=== PATIENT | female | born 1965 | race Caucasian/White ===

== ENCOUNTER → 2016-06-14 | Outpatient (CLI) | payer OTHER ==
--- NOTE | 2016-06-14 09:59 | DX ---
Right Knee, Three Views 9:20 a.m. Clinical History: 50-year-old female who underwent a right knee arthroplasty on May 03, 2016, and presents for routine surveillance imaging. ICD-10 Diagnostic Code: Z09. Comparison Study: Right knee, dated May 03, 2016. Findings: In the interim, there has been resorption of the postoperative air and removal of postsurgi tanja skin juan. There is a stable appearance to the tricomponent knee arthroplasty with anatomic al ignment of the distal femoral, proximal tibial, and the posterior patellar components. There is gilberto l positioning of the radiolucent spacer. The patellofemoral alignment is maintained on the sunrise vi ew. There is some mild prepatellar soft tissue swelling. Impression: Stable anatomic alignment of the right knee arthroplasty.
== END ==
LOC: BMCIMAGING 09:19
PROVIDERS: ATTEND Physician Assistant
DX: Z47.1 Aftercare following joint replacement surgery (principal); Z96.651 Presence of right artificial knee joint

== ENCOUNTER → 2016-06-28 | Outpatient (CLI) | payer OTHER ==
[~2016-06-28] MED LIST: LIDOCAINE 1% 30 ML SDV ONE; NA BICARBONATE 50 MEQ/50 ML VIAL ONE; THROMBIN (RECOMBINANT) 5,000 UNIT VIAL TP ONE
--- NOTE | 2016-06-28 18:49 | US ---
Right Doppler Pseudoaneurysm Evaluation Indication: The patient is about a month after right knee total replacement. There is a lump that h as developed laterally. It is pulsatile. Ultrasound evaluation earlier today shows a pseudoaneurysm . Thrombin injection is requested. Technique: Both the supervisor cured meats and myself scanned the patient. Findings: This pseudoaneurysm is at the lateral right knee. It is far from the posterior popliteal fossa. The connection between this pseudoaneurysm and the popliteal artery, with my scanning today, is well established. It is not a direct connection, but through a popliteal artery branch vessel or a sural branch vessel. The actual connection of this pseudoaneurysm to this branch is very small, ab out 5 mm in length, about 0.6 mm in diameter. The branch vessel is about 1.3 mm in diameter, and is about at least 2 cm away from the popliteal artery. Therefore, with the above anatomy, injecting thrombin into this pseudoaneurysm would not thrombose th e pseudoaneurysm. It would continue to fill via the branch vessel. Coil embolization of this branch vessel would be more appropriate definitive care route. The above are discussed with the patient, who expressed understanding. Assessment 1. Pseudoaneurysm at the right lateral knee that is coming off of a branch vessel, which in turn com municates via a long segment to the popliteal artery. 2. This needs to be coil embolized. Thrombin injection alone would not suffice. 3. The patient is now scheduled for catheter-directed angiography and coil embolization via [facility] for this Tuesday. 4. Meanwhile, I have asked the patient to continue to wear her compression stockings, cancel physica l therapy appointments for this week, and wrap it with Jamarcus wrap for added support, if needed. The pa marie states that it has increased in swelling for the last couple days.
== END ==
LOC: FIMAGING 14:00
PROVIDERS: ATTEND Family Medicine
DX: I72.4 Aneurysm of artery of lower extremity (principal); Z96.651 Presence of right artificial knee joint

== ENCOUNTER → 2016-06-28 | Outpatient (CLI) | payer OTHER ==
--- NOTE | 2016-06-28 12:28 | DX ---
Right Knee, 3 Views 11:20 a.m. Indication: Swelling. Technique: AP, lateral, and Merchant views. Comparison: Right knee series dated June 14, 2016, May 03, 2016, and February 25, 2014. Findings: The right total knee arthroplasty remains well seated. No perihardware fracture or lucency. The radiolucent spacer between the tibial and femoral components appears to be centrally positioned and unchanged in configuration. Moderate soft tissue fullness along the lateral aspect of the knee. M oderate effusion persists. Impression: 1. Good positioning of total knee arthroplasty. No perihardware fracture or breakdown. 2. Moderate effusion. Comment: The results were reviewed with Dr. Birdie Godwin and Odette Martinez PA-C shortly after study com pletion.
--- NOTE | 2016-06-28 13:29 | US ---
CORRECTED ORDER Right knee ultrasound at 11:58 a.m. Indication: Pain and swelling along the lateral aspect of the knee. Total knee arthroplasty in April 2016. Technique: The posterior and lateral aspects of the right knee were evaluated with grayscale and color Doppler imaging. Findings: The palpable fullness along the lateral aspect of the right knee corresponds to a pulsating 3.3 x 2.8 x 2.2 cm pseudoaneurysm. The pseudoaneurysm has a long (4 cm) neck, measuring up to 0.2 cm in diameter, which communicates with the popliteal artery along the posterior aspect of the knee. No evidence of arterial venous fistula. Impression: 3.3 cm pseudoaneurysm along the lateral aspect of the right knee has a long thin neck communicating with the popliteal artery. Comment: The results were discussed with Dr. Birdie Godwin and EDE Hung. Additionally, the imaging was reviewed with Dr. Kanchan Biggs. CECIL
== END ==
LOC: BMCIMAGING 11:17
PROVIDERS: ATTEND Family Medicine
DX: M25.461 Effusion, right knee (principal); Z96.651 Presence of right artificial knee joint

== ENCOUNTER 2016-07-02 11:13 | Observation (INO) | payer OTHER ==
[2016-07-02 12:28] LABS: CREATININE 0.6 mg/dL (0.6-1.0); GLOMERULAR FILTRATION RATE > 60
[2016-07-02] MEDS ORDERED: fentaNYL 100 MCG/2 ML INJ ONE ×2 (12:42→14:20)
[2016-07-02] MEDS ORDERED: MIDAZOLAM 2 MG/2 ML VIAL ONE ×2 (12:43→14:21)
[2016-07-02] MEDS ORDERED: CEFAZOLIN 2 GM/DEXTROSE/100 ML BAG IV ONE (12:59)
[2016-07-02] MEDS ORDERED: IOPAMIDOL (ISOVUE-300) 100 ML BTL IV ONE ×2 (13:02→15:44)
[2016-07-02 13:30] LABS: PROTIME(PATIENT) 13.1 SEC (12.0-15.0)
[2016-07-02] MEDS ORDERED: IOPAMIDOL (ISOVUE-370) 150 ML BTL IV ONE (15:45)
[2016-07-02] MEDS ORDERED: NITROGLYCERIN/D5W/250 ML BOTTLE IV ONE (15:45)
[2016-07-02] MEDS ORDERED: OXYCODONE/APAP 5/325 TAB PO PRN (16:09)
[2016-07-02] MEDS ORDERED: ONDANSETRON DISINTEGRATING 4 MG TAB PO PRN (16:09)
[2016-07-02] MEDS ORDERED: ONDANSETRON 4 MG/2 ML VIAL IVP PRN (16:09)
--- NOTE | 2016-07-02 18:26 | IR ---
Right Popliteal Arteriogram Transcatheter Embolization of Right Lateral Inferior Genicular Artery History: Pseudoaneurysm after right total knee arthroplasty. Consent: Risks and benefits of the procedure were discussed in detail, and informed consent was obta ined. The patient accepted risks of internal bleeding, infection, accidental embolization of nontarg et artery, and ALLERGIC reaction. Medications: Intravenous conscious sedation and analgesia were given under my supervision. Vital si gns, pulse oximetry, and electrocardiogram were monitored. The patient received 7 milligrams of Vers ed and 350 micrograms of fentanyl intravenously. She was given 200 mcg of nitroglycerin intra-arteri ally. Prophylactic antibiotic: Cefazolin, 2 gm IV. Start time: 1338. End time: 1520. Fluoroscopy time in minutes: 24.2. Estimated exposure in milligray: 54.6. Technique: The right groin was prepped and draped in sterile fashion. All elements of maximal steri le barrier technique were used, including cap, mask, sterile gown, sterile gloves, large sterile calero th, hand hygiene, and 2% chlorhexidine, for cutaneous antisepsis. For ultrasound imaging guidance, t he transducer and cable were placed in a sterile cover, and sterile coupling gel was used. Ultrasoun d evaluation of potential access sites was performed. With ultrasound guidance, the right common fem oral artery was entered with a 4-Cymro Microintroducer, followed by a 4-Cymro sidearm sheath over a 0.035 TSF wire. The sheath preferentially went down the right profunda femoris artery. Efforts to redirect a 0.035 Glidewire down the right superficial femoral artery with a 4-Cymro Glidecatheter fa iled, and arterial access was lost. Hemostasis was obtained by manual compression. A second access was made, further cephalad, with a 4-Cymro Microintroducer, 0.035 Amplatz wire, 7-Cymro dilator, an d 6-Cymro sidearm sheath. Once again, the course of the sheath was preferentially down the profunda femoral. Leaving the Amplatz wire in place, a 0.035 Glidewire was advanced [id number], within the sheath, and then down the superficial femoral artery while pulling the sheath tip back to the common femoral. The Amplatz wire was removed. Inner dilator was reinserted in the sheath and the sheath w as advanced down the superficial femoral artery. 4-Cymro Kumpe catheter was used for right poplitea l arteriography. The catheter was selectively placed into the right lateral and inferior genicular a rtery for superselective genicular arteriography. The catheter would not maintain position during vazquez bsequent catheter manipulations. Over a 0.035 Glidewire, exchange is made for a 5-Cymro DBS cathete r. This allowed coaxial placement of a Progreat microcatheter. 0.018 [place] Plus and 0.018 double curved Glidewire were used to attempt to seat the microcatheter beyond the pseudoaneurysm. The guid e wire could be advanced slightly beyond, but microcatheter would not follow. Four 0.018 microcoils were deployed to occlude the lateral inferior genicular artery adjacent to the pseudoaneurysm: Two 2 -mm x 2-cm helical coils and two 10-mm long straight coils (Hilal) were deployed. Spot image and sup erselective lateral genicular arteriography (via microcatheter) followed. Microcatheter was removed. The 5-Cymro catheter was pulled back into the popliteal artery for selective popliteal arteriograp hy. Catheter and sheath were removed. Attempted StarClose deployment failed to stop the bleeding af ter removal of catheter and sheath, and hemostasis was obtained by manual compression with a Thrombix patch. The [facility] condition. Findings: Imaging is limited by the metallic prostheses of the knee joint, obscuring large portions of popliteal artery and limiting the [id number]. Right popliteal artery supplies a hypertrophied lateral inferior genicular artery, which supplies a 2.8-cm x 2.0-cm pseudoaneurysm lateral to the kn ee joint. Two rapidly draining veins suggest arteriovenous fistula. Other arteries of this area are small. The microcoils occlude the lateral genicular artery and delayed images of right popliteal ar teriogram demonstrate no filling of the pseudoaneurysm after embolization. Impressions 1. 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 2. Occlusion of pseudoaneurysm and arteriovenous fistula with microcoils. Plan: Follow up limited color Doppler sonography in two weeks to make sure that the occlusion is dur able. I have ordered that examination. - - - - - - - - - - - - - - - - - - - - - - - - - - - - - ([facility] measures: Current medications were listed in the medical record, including all known prescript ions, liwu-vhq-qycpsrm medications, herbal medications, and nutritional supplements. Tobacco use: N one. Prophylactic antibiotic: Cefazolin, 2 gm IV. VTE prophylaxis: Unnecessary.)
--- NOTE | 2016-07-02 18:26 | IR ---
Right Popliteal Arteriogram Transcatheter Embolization of Right Lateral Inferior Genicular Artery History: Pseudoaneurysm after right total knee arthroplasty. Consent: Risks and benefits of the procedure were discussed in detail, and informed consent was obta ined. The patient accepted risks of internal bleeding, infection, accidental embolization of nontarg et artery, and ALLERGIC reaction. Medications: Intravenous conscious sedation and analgesia were given under my supervision. Vital si gns, pulse oximetry, and electrocardiogram were monitored. The patient received 7 milligrams of Vers ed and 350 micrograms of fentanyl intravenously. She was given 200 mcg of nitroglycerin intra-arteri ally. Prophylactic antibiotic: Cefazolin, 2 gm IV. Start time: 1338. End time: 1520. Fluoroscopy time in minutes: 24.2. Estimated exposure in milligray: 54.6. Technique: The right groin was prepped and draped in sterile fashion. All elements of maximal steri le barrier technique were used, including cap, mask, sterile gown, sterile gloves, large sterile calero th, hand hygiene, and 2% chlorhexidine, for cutaneous antisepsis. For ultrasound imaging guidance, t he transducer and cable were placed in a sterile cover, and sterile coupling gel was used. Ultrasoun d evaluation of potential access sites was performed. With ultrasound guidance, the right common fem oral artery was entered with a 4-Slovenian Microintroducer, followed by a 4-Slovenian sidearm sheath over a 0.035 TSF wire. The sheath preferentially went down the right profunda femoris artery. Efforts to redirect a 0.035 Glidewire down the right superficial femoral artery with a 4-Slovenian Glidecatheter fa iled, and arterial access was lost. Hemostasis was obtained by manual compression. A second access was made, further cephalad, with a 4-Slovenian Microintroducer, 0.035 Amplatz wire, 7-Slovenian dilator, an d 6-Slovenian sidearm sheath. Once again, the course of the sheath was preferentially down the profunda femoral. Leaving the Amplatz wire in place, a 0.035 Glidewire was advanced [id number], within the sheath, and then down the superficial femoral artery while pulling the sheath tip back to the common femoral. The Amplatz wire was removed. Inner dilator was reinserted in the sheath and the sheath w as advanced down the superficial femoral artery. 4-Slovenian Kumpe catheter was used for right poplitea l arteriography. The catheter was selectively placed into the right lateral and inferior genicular a rtery for superselective genicular arteriography. The catheter would not maintain position during vazquez bsequent catheter manipulations. Over a 0.035 Glidewire, exchange is made for a 5-Slovenian DBS cathete r. This allowed coaxial placement of a Progreat microcatheter. 0.018 [place] Plus and 0.018 double curved Glidewire were used to attempt to seat the microcatheter beyond the pseudoaneurysm. The guid e wire could be advanced slightly beyond, but microcatheter would not follow. Four 0.018 microcoils were deployed to occlude the lateral inferior genicular artery adjacent to the pseudoaneurysm: Two 2 -mm x 2-cm helical coils and two 10-mm long straight coils (Hilal) were deployed. Spot image and sup erselective lateral genicular arteriography (via microcatheter) followed. Microcatheter was removed. The 5-Slovenian catheter was pulled back into the popliteal artery for selective popliteal arteriograp hy. Catheter and sheath were removed. Attempted StarClose deployment failed to stop the bleeding af ter removal of catheter and sheath, and hemostasis was obtained by manual compression with a Thrombix patch. The [facility] was [facility] in [facility] condition. Findings: Imaging is limited by the metallic prostheses of the knee joint, obscuring large portions of popliteal artery and limiting the [id number]. Right popliteal artery supplies a hypertrophied lateral inferior genicular artery, which supplies a 2.8-cm x 2.0-cm pseudoaneurysm lateral to the kn ee joint. Two rapidly draining veins suggest arteriovenous fistula. Other arteries of this area are small. The microcoils occlude the lateral genicular artery and delayed images of right popliteal ar teriogram demonstrate no filling of the pseudoaneurysm after embolization. Impressions 1. 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 2. Occlusion of pseudoaneurysm and arteriovenous fistula with microcoils. Plan: Follow up limited color Doppler sonography in two weeks to make sure that the occlusion is dur able. I have ordered that examination. - - - - - - - - - - - - - - - - - - - - - - - - - - - - - ([facility] measures: Current medications were listed in the medical record, including all known prescript ions, joxt-ffe-[id number] medications, herbal medications, and nutritional supplements. Tobacco use: N one. Prophylactic antibiotic: Cefazolin, 2 gm IV. VTE prophylaxis: Unnecessary.)
[2016-07-02 20:30] VITALS: TEMP 97.7
[2016-07-02] MEDS ORDERED: NS 500 ML IV ONE (22:30)
[2016-07-02 22:36] VITALS: RESP 16
[2016-07-02 22:41] VITALS: BP 141/88; PULSE 69; O2SAT 96
== END 2016-07-02 23:04 | disposition home or self-care (01) ==
LOC: FIMAGING 11:13 → F2W 17:33
PROVIDERS: ADMIT Radiology Diagnostic Radiology; ATTEND Radiology Diagnostic Radiology
PROC: 04LY3DZ Occlusion of Lower Artery with Intraluminal Device, Percutaneous Approach (ICD-10-PCS; principal; 2016-07-02)
PROC: B41F1ZZ Fluoroscopy of Right Lower Extremity Arteries using Low Osmolar Contrast (ICD-10-PCS; principal; 2016-07-02)
DX: I72.4 Aneurysm of artery of lower extremity (principal); Z96.651 Presence of right artificial knee joint
CPT/HCPCS: 37242; 75710; 75894; 99152; 99153; C1769; C1894; C1760; J0690; J1644; J2250; J3010; Q9967

== ENCOUNTER → 2016-07-06 | Outpatient (CLI) | payer OTHER ==
--- NOTE | 2016-07-06 18:15 | US ---
Arterial Doppler of the Right Popliteal Region Indication: The patient is status post recent coil embolization of a geniculate branch that is contr ibuting to an arteriovenous fistula, as well as a pseudoaneurysm post knee surgery. The patient says after the procedure, there are tingling sensations at the knee, in addition to swelling. The patien t was originally due for follow up with Dr. Ross in two weeks. I brought the patient back earlier today because of the symptoms. Dr. Ross is currently out of town. Technique: Arterial duplex Doppler of the right knee, the pseudoaneurysm, and below the knee vessels are performed. Findings: Indeed, there is clotted blood in the pseudoaneurysm, which currently measures 3.37 x 3.27 x 1.73 cm. This is not significantly changed in size in terms of overall volume. There is no flow in this pseudoaneurysm. The underlying geniculate artery is now absent. The popliteal artery and subsequent trifurcation vessels in the calf show normal pulsatility and flow . No fistula is present in the venous system. Impression: Totally thrombosed lateral right knee pseudoaneurysm, with normal waveforms in the under lying artery and venous system. I suspect the patient's tingling sensation is perhaps due to remodel ing of this hematoma, and to some degree remodeling of the surrounding knee swelling. This was explained to the patient, who expressed understanding prior to leaving the department today.
== END ==
LOC: FIMAGING 15:41
PROVIDERS: ATTEND Radiology Diagnostic Radiology
DX: I72.4 Aneurysm of artery of lower extremity (principal); I82.90 Acute embolism and thrombosis of unspecified vein; Z98.890 Other specified postprocedural states

== ENCOUNTER → 2016-07-28 | Outpatient (CLI) | payer OTHER | LOC: BMCIMAGING 08:41 | PROVIDERS: ATTEND Orthopaedic Surgery | DX: Z96.651 Presence of right artificial knee joint (principal); M25.461 Effusion, right knee; Z95.828 Presence of other vascular implants and grafts ==

== ENCOUNTER → 2016-10-19 | Outpatient (CLI) | payer OTHER | LOC: FIMAGING 11:54 | PROVIDERS: ATTEND Radiology Diagnostic Radiology | DX: I72.4 Aneurysm of artery of lower extremity (principal) ==

== ENCOUNTER → 2017-04-06 | Outpatient (CLI) | payer OTHER | LOC: BMCIMAGING 15:06 | PROVIDERS: ATTEND Orthopaedic Surgery | DX: M17.12 Unilateral primary osteoarthritis, left knee (principal); M25.462 Effusion, left knee ==

== ENCOUNTER 2017-04-18 10:45 | Inpatient (IN) | payer OTHER ==
[2017-05-02] MEDS ORDERED: NS IV ONE (06:00)
[2017-05-02] MEDS ORDERED: VANCOMYCIN HCL/NORMAL SALINE 250 ML IV ONE (06:00)
[2017-05-02] MEDS ORDERED: TRANEXAMIC ACID IV ONE (06:00)
[2017-05-02] MEDS ORDERED: ROPIVACAINE 0.2% 80 MG, EPINEPHrine 0.2 MG, KETOROLAC TROMETHAMINE 30 MG, morphINE 10 M... IU ONE (06:00)
--- NOTE | 2017-05-02 06:37 | PDIAF ---
- Diagnosis Diagnosis: lef knee djd Code Status: Full Code - Medication Management Discharge Medications: Medications to Continue on Transfer Albuterol [Proventil Inhaler HFA (*)] 1 - 2 puffs IH DAILY PRN 04/05/16 [Last Taken Unknown] Diclofenac Sodium [Voltaren 50 MG (*)] 100 mg PO DAILY 04/05/16 [Last Taken Unknown] Venlafaxine Xr [Effexor Xr] 150 mg PO DAILY 04/05/16 [Last Taken Unknown] Ibuprofen [Advil] 400 mg PO Q12 PRN 03/24/17 [Last Taken Unknown] Discharge Medications: Refer to the Discharge Home Medication list for PRN reason. - Orders Services needed: Home Care, Physical Therapy Home Care Face to Face: I certify that this patient was under my care and that I had the required [id number]-[id number] encounter meeting the encounter requirements on the discharge day. My findings support the fact that the patient is homebound as defined in Home Care Face to Face Continued: CMS Chapter 7 Medicare Benefits Manual 30.1.1 , The condition of the patient is such that there exists a normal inability to leave home and consequently, leaving home would require a considerable and taxing effort. Activity/Weight Bearing Restrictions: wbat. rom as tolerated. daily dressing changes. no soaking or immersion. f/u at two weeks. seek attn for increasing redness, swelling, drainage, discharge - Follow Up Care Current Providers and Referrals: Birdie Castro MD [Primary Care Provider] -
--- NOTE | 2017-05-02 06:37 | PDHPUP ---
History & Physical Update H&P update statement: This history and physical update is based on an assessment of the patient which was completed after admission or registration (within 24 hours), but prior to the surgery/procedure.
[2017-05-02] MEDS ORDERED: THROMBIN (BOVINE) 5,000 UNIT VIAL TP ONE (09:17)
[2017-05-02] MEDS ORDERED: ceFAZolin 1 GM/5 ML SYR ONE (09:17)
[2017-05-02] MEDS ORDERED: CALCIUM CHLORIDE 1 GM/10 ML INJ ONE (09:17)
[2017-05-02] MEDS ORDERED: MIDAZOLAM 2 MG/2 ML VIAL IVP ONE (11:06)
[2017-05-02] MEDS ORDERED: VANCOMYCIN PHARMACY TO DOSE MISC ONE (11:06)
[2017-05-02] MEDS ORDERED: ACETAMINOPHEN 325 MG TAB PO ONE (11:06)
[2017-05-02] MEDS ORDERED: FAMOTIDINE 20 MG TAB PO ONE (11:06)
[2017-05-02] MEDS ORDERED: LR 1,000 ML IV ONE (11:10)
[2017-05-02] MEDS ORDERED: LIDOCAINE 1% 2 ML INJ ID PRN (11:10)
[2017-05-02] MEDS ORDERED: VANCOMYCIN 1 GM VIAL ONE (11:17)
--- NOTE | 2017-05-02 11:27 | PDANEPAE ---
ANE History of Present Illness DJD L Knee s/f L TKA ANE Past Medical History - Cardiovascular History Hx Hypertension: No Hx Arrhythmias: No Hx Chest Pain: No Hx Coronary Artery / Peripheral Vascular Disease: No Hx CHF / Valvular Disease: No Hx Palpitations: No - Pulmonary History Hx COPD: No Hx Asthma/Reactive Airway Disease: No Hx Recent Upper Respiratory Infection: No Hx Oxygen in Use at Home: No Hx Sleep Apnea: No Sleep Apnea Screening Result - Last Documented: Negative Pulmonary History Comment: hx of asthma but uses inhaler very occassionally only when sick w/URI - Neurologic History Hx Cerebrovascular Accident: No Hx Seizures: No Hx Dementia: No - Endocrine History Hx Diabetes: No - Renal History Hx Renal Disorders: Yes Renal History Comment: frequency - Liver History Hx Hepatic Disorders: No - Neurological & Psychiatric Hx Hx Neurological and Psychiatric Disorders: Yes Neurological / Psychiatric History Comment: on Effexor- menopausal - Cancer History Hx Cancer: No - Congenital Disorder History Hx Congenital Disorders: No - GI History Hx Gastrointestinal Disorders: No - Other Health History Other Health History: OA R knee. L total knee resulted in pseudo-aneurysm . Coil embolization 07-06-[address] Biggs after initial arteriogram 07-02-16-Dr Ross - Chronic Pain History Chronic Pain: Yes (R knee) - Surgical History Prior Surgeries: bilateral mensicus repairs. knee replaced, right 05/14 ANE Review of Systems Review of Systems: - Exercise capacity METS (RN): 4 METS ANE Patient History - Allergies Allergies/Adverse Reactions: Penicillins Allergy (Verified 03/30/17 10:09) Hives - Home Medications Home medications: home medication list seen and reviewed Home Medications: Albuterol [Proventil Inhaler HFA (*)] 1 - 2 puffs IH DAILY PRN 04/05/16 [Last Taken 04/02/17] Diclofenac Sodium [Voltaren 50 MG (*)] 100 mg PO DAILY 04/05/16 [Last Taken ] Venlafaxine Xr [Effexor Xr] 150 mg PO DAILY 04/05/16 [Last Taken 05/02/17] Ibuprofen [Advil] 400 mg PO Q12 PRN 03/24/17 [Last Taken 05/02/17] - NPO status NPO Since - Liquids (Date): 05/02/17 NPO Since - Liquids (Time): 07:00 NPO Since - Solids (Date): 05/01/17 NPO Since - Solids (Time): 21:00 - Anes Hx Anes Hx: post operative nausea, slow to awaken from anesthesia - Smoking Hx Smoking Status: Never smoked - Alcohol Use Alcohol Use: Occasionally - Family Anes Hx Family Anes Hx: none Family Hx Anesthesia Complications: none ANE Labs/Vital Signs - Labs - CBC WBC: reviewed and okay - Vital Signs Blood Pressure: 136/79 Heart Rate: 74 Respiratory Rate: 16 O2 Sat (%): 94 Height: 152.4 cm Weight: 68.492 kg ANE Physical Exam - Airway Mallampati Score: Class 1 Mouth exam: normal dental/mouth exam - Pulmonary Pulmonary: no respiratory distress - Cardiovascular Cardiovascular: regular rate and rhythym - ASA Status ASA Status: I ANE Anesthesia Plan Anesthesia Plan: spinal (R/B/A explained and patient agrees to proceed.) Regional Anesthesia: adductor canal FNB (pt consented)
[2017-05-02] MEDS ORDERED: ONDANSETRON 4 MG/2 ML VIAL ONE (12:13)
[2017-05-02] MEDS ORDERED: PROPOFOL/EMULSION 500 MG/50 ML BOTTLE IV ONE ×2 (12:13→13:17)
[2017-05-02] MEDS ORDERED: LIDOCAINE 2% JELLY 5 ML TUBE ONE (12:13)
[2017-05-02] MEDS ORDERED: DEXAMETHASONE 4 MG/ML VIAL ONE ×2 (12:13→13:45)
[2017-05-02] MEDS ORDERED: fentaNYL 100 MCG/2 ML INJ ONE (12:13)
[2017-05-02] MEDS ORDERED: NALOXONE HCL 0.4 MG/ML INJ IVP PRN (13:48)
[2017-05-02] MEDS ORDERED: ACETAMINOPHEN 500 MG TAB PO PRN (13:48)
[2017-05-02] MEDS ORDERED: PHENYLEPHRINE HCL 100 MCG/ML SYR IVP PRN (13:48)
[2017-05-02] MEDS ORDERED: diphenhydrAMINE 25 MG CAP PO PRN (13:48)
[2017-05-02] MEDS ORDERED: POLYETHYLENE GLYCOL 3350 17 GM PKT PO PRN (13:48)
[2017-05-02] MEDS ORDERED: LACTULOSE 20 GM/30 ML UDCUP PO PRN (13:48)
[2017-05-02] MEDS ORDERED: DEXAMETHASONE 4 MG/ML VIAL IVP PRN (13:48)
[2017-05-02] MEDS ORDERED: PROMETHAZINE HCL 25 MG/ML INJ IVP PRN ×2 (13:48)
[2017-05-02] MEDS ORDERED: MAGNESIUM HYDROXIDE 30 ML UDCUP PO PRN (13:48)
[2017-05-02] MEDS ORDERED: OXYCODONE/APAP 5/325 TAB PO PRN (13:48)
[2017-05-02] MEDS ORDERED: TEMAZEPAM 15 MG CAP PO PRN (13:48)
[2017-05-02] MEDS ORDERED: LABETALOL HCL 5 MG/ML 20 ML MDV IVP PRN (13:48)
[2017-05-02] MEDS ORDERED: ALBUTEROL 3 ML DEYVIAL IH PRN (13:48)
[2017-05-02] MEDS ORDERED: BISACODYL 10 MG SUPP PR PRN (13:48)
[2017-05-02] MEDS ORDERED: ONDANSETRON DISINTEGRATING 4 MG TAB PO PRN (13:48)
[2017-05-02] MEDS ORDERED: ONDANSETRON 4 MG/2 ML VIAL IVP PRN ×2 (13:48)
[2017-05-02] MEDS ORDERED: DIPHENOXYLATE/ATROPINE LOMOTIL 1 TAB PO PRN (13:48)
[2017-05-02] MEDS ORDERED: PROMETHAZINE HCL 25 MG SUPPR PR PRN (13:48)
[2017-05-02] MEDS ORDERED: METOCLOPRAMIDE 10 MG/2 ML VIAL IVP PRN ×2 (13:48)
[2017-05-02] MEDS ORDERED: DIAZEPAM 5 MG TAB PO PRN (13:48)
[2017-05-02] MEDS ORDERED: HYDROCODONE/APAP 5/325 TAB PO PRN (13:48)
[2017-05-02] MEDS ORDERED: LR 500 ML IV PRN (13:48)
[2017-05-02] MEDS ORDERED: MEPERIDINE 25 MG/ML SYR IVP PRN (13:48)
[2017-05-02] MEDS ORDERED: fentaNYL 100 MCG/2 ML INJ IVP PRN (13:48)
[2017-05-02] MEDS ORDERED: LR 1,000 ML IV SCH (14:00)
--- NOTE | 2017-05-02 14:24 | POSTANESTH ---
Post Anesthetic Evaluation Cardiovascular Status: Normal, Stable Respiratory Status: Normal, Stable Level of Consciousness/Mental Status: Can Participate in Eval Pain Control: Adequate, Prn Tx Ordered Nausea/Vomiting Control: Adequate, Prn Tx Ordered Complications Possibly Related to Anesthesia: None Noted
[2017-05-02] MEDS: oxyCODONE IR 5 MG TAB PO PRN ×3 (15:42→21:54)
[2017-05-02] MEDS: ACETAMINOPHEN 325 MG TAB PO SCH (17:44)
[2017-05-02] MEDS: TRANEXAMIC ACID 650 MG TAB PO SCH (17:44)
[2017-05-02] MEDS: FAMOTIDINE 20 MG TAB PO SCH (20:15)
[2017-05-02] MEDS: SENNOSIDES/DOCUSATE SODIUM TAB PO SCH (20:15)
[2017-05-03] MEDS ORDERED: VANCOMYCIN 750 MG in D5W 150 ML IV ONE
[2017-05-03] MEDS: ACETAMINOPHEN 325 MG TAB PO SCH ×3 (00:26→11:08)
[2017-05-03] MEDS: oxyCODONE IR 5 MG TAB PO PRN ×6 (00:28→12:21)
[2017-05-03] MEDS: TRANEXAMIC ACID 650 MG TAB PO SCH ×2 (00:36→09:45)
[2017-05-03 05:46] LABS: HEMATOCRIT 29.9 % (38.0-47.0); HEMOGLOBIN 10.9 g/dL (12.6-16.3)
--- NOTE | 2017-05-03 07:45 | PDIAF ---
- Diagnosis Diagnosis: lef knee djd Code Status: Full Code - Medication Management Discharge Medications: Medications to Continue on Transfer Albuterol [Proventil Inhaler HFA (*)] 1 - 2 puffs IH DAILY PRN 04/05/16 [Last Taken 04/02/17] Diclofenac Sodium [Voltaren 50 MG (*)] 100 mg PO DAILY 04/05/16 [Last Taken ] Venlafaxine Xr [Effexor Xr] 150 mg PO DAILY 04/05/16 [Last Taken 05/02/17] Ibuprofen [Advil] 400 mg PO Q12 PRN 03/24/17 [Last Taken 05/02/17] oxyCODONE IR [Oxycodone Ir (*)] 5 - 10 mg PO Q3HRS PRN #90 tab 05/03/17 [Last Taken Unknown] Discharge Medications: Refer to the Discharge Home Medication list for PRN reason. - Orders Services needed: Home Care, Physical Therapy Home Care Face to Face: I certify that this patient was under my care and that I had the required mudh-ei-ckji encounter meeting the encounter requirements on the discharge day. My findings support the fact that the patient is homebound as defined in Home Care Face to Face Continued: CMS Chapter 7 Medicare Benefits Manual 30.1.1 , The condition of the patient is such that there exists a normal inability to leave home and consequently, leaving home would require a considerable and taxing effort. Diet Recommendation: no restrictions on diet Diet Texture: Regular Texture Diet Activity/Weight Bearing Restrictions: wbat. rom as tolerated. daily dressing changes. no soaking or immersion. f/u at two weeks. seek attn for increasing redness, swelling, drainage, discharge - Follow Up Care Current Providers and Referrals: Birdie Castro MD [Primary Care Provider] -
[2017-05-03 08:38] VITALS: O2SAT 94
[2017-05-03] MEDS ORDERED: VENLAFAXINE XR 150 MG CAP PO SCH (09:00)
[2017-05-03] MEDS ORDERED: ASPIRIN EC 325 MG TAB PO SCH (09:00)
[2017-05-03] MEDS: SENNOSIDES/DOCUSATE SODIUM TAB PO SCH (09:44)
[2017-05-03] MEDS: FAMOTIDINE 20 MG TAB PO SCH (09:46)
[2017-05-03 11:57] VITALS: BP 125/76; PULSE 95; RESP 16; TEMP 98.6
--- NOTE | 2017-05-03 13:03 | GDS ---
[f rep st] DISCHARGE SUMMARY ADMITTING DIAGNOSIS: Left knee degenerative joint disease. DISCHARGE DIAGNOSIS: Left knee degenerative joint disease. PROCEDURE: Left total knee arthroplasty, MAKOplasty. OPERATIVE INDICATIONS: The patient is a 51-year-old woman who is known to me for previous right knee replacement. She has end-stage arthritis to her left knee. Clinical and radiographic features are consistent with this. She has failed all attempts at conservative management. I have, therefore, re commended total knee replacement. She understood the risks, benefits, alternatives, and wished to pr oceed. Written consent was signed and placed in patient's chart. HOSPITAL COURSE: The patient was admitted to the hospital floor after uncomplicated total knee arthr oplasty. She tolerated the procedure well. Overnight, she had no complications. At the time of dis charge, she is tolerating an oral diet. Pain is well controlled on oral medicines. She is voiding w ithout difficulty. Dressings are clean, dry, and intact. She has no calf swelling or tenderness, bi lateral lower extremities. Negative Homans. X-rays are stable with anatomic alignment, no fracture or lucency. Serial hematocrit has remained stable. DISCHARGE ACTIVITY: She is weightbearing as tolerated. Range of motion as tolerated. Daily dressin g changes. No soaking or immersion. May shower without the bandage. FOLLOWUP: At 2 weeks. Seek attention for increasing redness, swelling, drainage, discharge, or othe r focal complaints. DISCHARGE MEDICATIONS: Oxycodone 5 mg 1-2 every 4 hours p.r.n. pain. Aspirin 325 mg p.o. daily for 6 weeks. /[id number]/MODL
--- NOTE | 2017-05-03 14:44 | ASMTCMCOM ---
CM Note CM Note Notes: CJR pre-call pt states she would like [facility]. PT rec outpatient. put in [facility] orders, [facility] insurance. Date Signed: 05/03/2017 02:44 PM Electronically Signed By:MIGDALIA Fuentes
--- NOTE | 2017-05-03 14:45 | ASDISCHSUM ---
Discharge Information Plan Status:Home with Home Health Medically Cleared to Leave: Discharge Date:05/03/2017 01:46 PM CM D/C Disposition:Home Health Service ADT D/C Disposition:Home Health Service Projected Discharge Date:05/03/2017 11:00 AM Transportation at D/C: Discharge Delay Reason: Follow-Up Date:05/03/2017 11:00 AM Discharge Slot: Final Diagnosis: Placement Information Referral Type:*Home Health Care Services Referral ID:[id number] Provider Name:[facility] ([facility]) [facility] [facility] [place] [address] Address 2: City:[place] Selection Factors: State:[place] Patient Contact Information Contact Name:CHAS Relationship: Address:[address] [facility] City:[facility] Phone: State/Zip Code:[place] [address] Email: Financial Information Financial Class:HMO and PPO Plans Primary Plan Desc:[employer]/POS PPO Primary Plan Number:[id number] Secondary Plan Desc: Secondary Plan Number: Assessment Information [facility] CM Progress Note CM Note CM Note Notes: CJR pre-call pt states she would like [facility]. PT rec outpatient. put in [facility] orders, sent in [facility] to [facility] who take pt insurance. Date Signed: 05/03/2017 02:44 PM Electronically Signed By:MIGDALIA Fuentse Intervention Information
--- NOTE | 2017-05-04 20:21 | GOP ---
[f rep st] OPERATIVE REPORT DATE OF OPERATION: 05/02/2017 SURGEON: Genaro Cyr MD ESE TEACHER: Jon Johnson, SOFTWARE ENGINEERING ASSOCIATE MANAGER, [employer]. BEN Hung. PREOPERATIVE DIAGNOSIS: Left knee degenerative joint disease. POSTOPERATIVE DIAGNOSIS: Left knee degenerative joint disease. PROCEDURE PERFORMED: Left total knee arthroplasty, MAKOplasty. FINDINGS: SPECIMENS: To Pathology, none. DESCRIPTION OF PROCEDURE: The patient was identified in the preanesthesia area. She was given 2 g o f Ancef intravenously en route to the operative suite. The left knee had clearly been demarcated wit h operative site with indelible marker. In the OR spinal anesthetic was placed followed by general e ndotracheal anesthesia. She was positioned in the supine position. Attention was turned to the left knee and lower extremity, which were sterilely prepped and draped in usual fashion. Appropriate veronica e-out procedure was carried out. The limb was exsanguinated with an Esmarch bandage and tourniquet i nflated to 275 mmHg. A standard anterior midline incision was made. Thick subcutaneous flaps were e levated followed by medial parapatellar arthrotomy. Thick subcutaneous flaps were elevated. The kne e demonstrated tricompartmental arthritis. Subperiosteal elevation was carried out to the mid del real l plane. Retractors were placed. A separate percutaneous incision was made over the mid thigh and m id willis, and the femoral and tibial reference arrays were affixed. The femoral and tibial checkpoint s were placed. The bony landmarks were entered into the computer. The knee was balanced with manipu lation of the components with the MAKOplasty protocol. Using the MAKOplasty robot, the resections we re made on the femur for a size 2 femur, including a femoral box cut and a size 1 tibia. A trial red uction over a 1 x 11 mm X3 insert revealed full flexion and extension and stability through the flexi on/extension arc. The patella was then everted, cut in a freehand cutting technique and drill holes made for a size 29 polyethylene patella. All trial components were withdrawn. The bony surfaces wer e thoroughly cleansed and dried. In a sequential fashion, the tibial, femoral and patellar component s were cemented. All marginal cement was withdrawn. The X3 liner was then placed, confirmed to be f ully seated. The knee was brought to full extension and cement was allowed to fully cure. During th at process, the joint was instilled with a joint cocktail of ropivacaine, morphine, Toradol, and epin ephrine. The wound was copiously irrigated with pulsatile lavage. The medial parapatellar arthrotom y closed using #1 Ethibond suture, subcutaneous tissue using 0 Quill and the skin stapled. The dress ing was applied. The patient was awakened, extubated, taken to recovery room in good stable conditio n. OPERATIVE INDICATIONS: The patient is a 51-year-old woman who has end-stage arthritis to her left kn ee. Clinical and radiographic features are consistent with this. She has failed all attempts at con servative management. I have therefore recommended total knee replacement. She understood the risks , benefits, alternatives, and wished to proceed. Written consent was signed and placed in the megan t's chart. TOTAL TOURNIQUET TIME: 60 minutes. COMPLICATIONS: None. IMPLANTS: The Julissa Triathlon PS knee, size 2, size 1 tibial base plate, a Trident X3 tibial inser t size 1 x 11 mm and an X3 asymmetric patella size 29, 9 mm thick patella. DISPOSITION: To the recovery room and then the floor. /[id number]/MODL
== END 2017-05-03 13:46 | disposition home health service (06) | DRG 470 ==
LOC: F3N 05-02 10:55
PROVIDERS: ADMIT Orthopaedic Surgery; ATTEND Orthopaedic Surgery
PROC: 0SRD0J9 Replacement of Left Knee Joint with Synthetic Substitute, Cemented, Open Approach (ICD-10-PCS; principal; 2017-05-02 12:45)
PROC: 8E0YXCZ Robotic Assisted Procedure of Lower Extremity (ICD-10-PCS; principal; 2017-05-02 12:45)
DX: M17.12 Unilateral primary osteoarthritis, left knee (principal); J45.909 Unspecified asthma, uncomplicated; R35.0 Frequency of micturition; Z96.651 Presence of right artificial knee joint
CPT/HCPCS: 97116-GP; 97161-GP; C1713; J0171; J1100; J1885; J2250; J2370; J2405; J2550; J2704; J2795; J3010; J3370

== ENCOUNTER → 2017-04-28 | Outpatient (CLI) | payer OTHER | LOC: FIMAGING 09:13 | PROVIDERS: ATTEND Orthopaedic Surgery | DX: Z01.818 Encounter for other preprocedural examination (principal); M17.12 Unilateral primary osteoarthritis, left knee ==

== ENCOUNTER → 2017-06-22 | Outpatient (CLI) | payer OTHER | LOC: BMCIMAGING 15:42 | PROVIDERS: ATTEND Orthopaedic Surgery | DX: Z96.652 Presence of left artificial knee joint (principal) ==

== ENCOUNTER → 2017-08-03 | Outpatient (CLI) | payer OTHER | LOC: BMCIMAGING 11:18 → EDSTATUS 11:19 | PROVIDERS: ATTEND Orthopaedic Surgery | DX: Z47.1 Aftercare following joint replacement surgery (principal); Z96.652 Presence of left artificial knee joint ==

== ENCOUNTER → 2017-09-29 | Outpatient (CLI) | payer OTHER | LOC: CIMAGING 14:41 | PROVIDERS: ATTEND Family Medicine | DX: Z12.31 Encounter for screening mammogram for malignant neoplasm of breast (principal) ==

== ENCOUNTER → 2017-11-07 | Outpatient (CLI) | payer OTHER | LOC: BMCIMAGING 15:30 | PROVIDERS: ATTEND Orthopaedic Surgery | DX: Z47.1 Aftercare following joint replacement surgery (principal); Z96.652 Presence of left artificial knee joint ==

== ENCOUNTER → 2018-09-27 | Outpatient (CLI) | payer OTHER | LOC: BMCIMAGING 14:28 | PROVIDERS: ATTEND Orthopaedic Surgery | DX: Z09 Encounter for follow-up examination after completed treatment for conditions other than malignant neoplasm (principal); M89.8X6 Other specified disorders of bone, lower leg; Z96.651 Presence of right artificial knee joint ==